=== PATIENT | female | born 1990 | race Caucasian/White ===

== ENCOUNTER 2016-12-31 13:27 | Emergency (ER) | payer OTHER ==
[~2016-12-31] VITALS: Ht 167.6 cm; Wt 88.4 kg
[2016-12-31 13:31] VITALS: BP 108/81; PULSE 112; RESP 16; TEMP 98.2; O2SAT 100
[2016-12-31] MEDS ORDERED: MORPHINE SULFATE 4 MG/ML INJ IM ONE (14:00)
[2016-12-31] MEDS ORDERED: ONDANSETRON HCL 4 MG/2 ML VIAL IM ONE (14:00)
[2016-12-31] MEDS ORDERED: KETOROLAC TROMETHAMINE 60 MG/2 ML (IM) VIAL IM ONE (14:00)
--- NOTE | 2016-12-31 14:00 | PD ---
HPI Chief Complaint: Back/ Neck Pain or Injury Time Seen by Provider: 13:39 Travel History International Travel<30 days: No Contact w/Intl Traveler<30days: No Traveled to known affect area: No History of Present Illness HPI The patient was seen and examined in the presence of the nurse. This patient complains of back pain. This morning around 9 AM she bent over to continuous pickling line pickler her dog in the active bending over developed back pain. It's bilateral low back pain. It radiates down both legs. No muscle weakness or sensory loss or urinary incontinence or retention. No direct trauma to the area. Symptoms severity is moderate. PFSH Past Medical History Diminished Hearing: No Tetanus Vaccination: > 5 Years Influenza Vaccination: Yes ?: Not LMP: 12/05/2015 Past Surgical History Oral Surgery: Yes (jaw) Social History Alcohol Use: No Tobacco Use: No Substance Use: No Allergies-Medications (Allergen,Severity, Reaction): Coded Allergies: No Known Allergies (Unverified , 12/31/16) Review of Systems General / Constitutional: No: Fever Eyes: No: Visual changes HENT: No: Headaches Cardiovascular: No: Chest Pain or Discomfort Respiratory: No: Shortness of Breath Gastrointestinal: No: Abdominal Pain Genitourinary: No: Dysuria Musculoskeletal: Positive: Pain Skin: No Rash Neurologic: No: Weakness Psychiatric: No: Depression Endocrine: No: Polydipsia Hematologic/Lymphatic: No: Easy Bruising Physical Exam Narrative GENERAL: Well-nourished, well-developed patient. SKIN: Warm and dry. HEAD: Normocephalic. EYES: No scleral icterus. No injection or drainage. NECK: Supple, trachea midline. No JVD or lymphadenopathy. CARDIOVASCULAR: Regular rate and rhythm without murmurs, gallops, or rubs. RESPIRATORY: Breath sounds equal bilaterally. No accessory muscle use. GASTROINTESTINAL: Abdomen soft, non-tender, nondistended. MUSCULOSKELETAL: No cyanosis, or edema. No midline tenderness. Straight leg raise is negative bilaterally BACK: Nontender without obvious deformity. No CVA tenderness. NEUROLOGICAL: Awake and alert. Pupils are equal round and reactive. Motor and sensory grossly within normal limits. Five out of 5 muscle strength in all muscle groups. Normal speech. Data Data Last Documented VS Vital Signs Date Time Temp Pulse Resp B/P Pulse Ox O2 Delivery O2 Flow Rate FiO2 12/31/16 13:31 98.2 112 16 108/81 100 [facility] Medical Decision Making Medical Screen Exam Complete: Yes Emergency Medical Condition: Yes Medical Record Reviewed: Yes Differential Diagnosis Lumbar strain, sciatica, disc herniation Narrative Course I have reviewed the patient's electronic medical record. No objective findings here. She is neurologically intact. Gave her injection of Toradol and morphine and Zofran Prescriptions written for symptom relief Family physician follow-up recommended No red flags to suggest emergent imaging is indicated Diagnosis Primary Impression: Low back pain Qualified Code: M54.42 - Acute bilateral low back pain with bilateral sciatica Additional Instructions: The patient was advised to follow up with their physician and return if they worsen. The patient was warned about potential sedation for the medications they will receive on prescription. Med/Other Pt SpecificInfo: Prescription(s) given Disposition: 01 DISCHARGE HOME Condition: Stable Ronnell Dimas MD Dec 31, 2016 14:00
[2016-12-31] MEDS ORDERED: TRAM50TA PO (14:01)
[2016-12-31] MEDS ORDERED: ORPH100T99 PO (14:01)
== END 2016-12-31 14:55 | disposition home or self-care (01) ==
LOC: PHED 13:27
DX: M54.42 Lumbago with sciatica, left side (principal)
CPT/HCPCS: 96372; 99283; J2270; J2405